=== PATIENT | female | born 1980 | race African-American/Black ===

== ENCOUNTER 2022-05-16 21:40 | Emergency (ER) | payer MEDICAID ==
[~2022-05-16] VITALS: Ht 167.6 cm; Wt 136.0 kg
[2022-05-16] MEDS ORDERED: DIPHENHYDRAMINE 50MG/ML VIAL IV ONE (22:30)
[2022-05-16] MEDS ORDERED: DEXAMETHASONE 10 MG/ML VIAL IV ONE (22:30)
[2022-05-16] MEDS ORDERED: FAMOTIDINE 20MG/2ML VIAL IV ONE (22:30)
[2022-05-17 00:03] VITALS: BP 142/64
[2022-05-17] MEDS ORDERED: EPIN0.3P3 IM (00:37)
[2022-05-17] MEDS ORDERED: DIPH25TA24 MT (00:37)
[2022-05-18] MEDS ORDERED: EPIN0.3P3 IM (10:53)
[2022-05-18] MEDS ORDERED: DIPH25TA62 MT (10:53)
== END 2022-05-17 00:55 | disposition home or self-care (01) ==
LOC: ER 21:40
DX: T78.40XA Allergy, unspecified, initial encounter (principal); X58.XXXA Exposure to other specified factors, initial encounter; H57.89 Other specified disorders of eye and adnexa
CPT/HCPCS: 96374; 96375; 99291; J1100; J1200; J3490